=== PATIENT | female | born 1950 | race Caucasian/White ===

== ENCOUNTER 2016-11-21 18:15 | Inpatient (IN) | payer OTHER ==
[~2016-11-21] VITALS: Ht 165.1 cm; Wt 70.3 kg
[2016-11-21] MEDS ORDERED: IV NS 0.9% 1,000 ML BAG IV ONE (19:30)
[2016-11-21 19:44] LABS: BASOPHILS # (AUTO) 0.4 /CMM (0.0-0.2); BASOPHILS % (AUTO) 2.3 % (0.0-2.0); DIFF TOTAL % 100 %; EOSINOPHILS % (AUTO) 0.1 % (0.0-6.0); HEMATOCRIT 50 % (33-45); HEMOGLOBIN 15.9 g/dL (11.5-14.8); LYMPHOCYTES # (AUTO) 1.7 /CMM (0.8-4.8); MEAN CORPUSCULAR HEMOGLOBIN 28 PG (26.0-33.0); MEAN CORPUSCULAR HGB CONC 32 g/dl (31.0-36.0); MEAN CORPUSCULAR VOLUME 88 fL (82-100); MONOCYTES # (AUTO) 0.6 /CMM (0.1-1.30); MONOCYTES % (AUTO) 3.7 % (2.0-12.0); NEUTROPHILS # (AUTO) 14.4 /CMM (1.8-8.9); NEUTROPHILS % (AUTO) 83.9 % (43.0-81.0); PLATELET COUNT (AUTO) 292 /CMM (150-450); RED BLOOD CELL COUNT(AUTO) 5.72 MIL/uL (4.0-5.2); WHITE BLOOD COUNT (AUTO) 17.1 K/uL (4.3-11.0)
[2016-11-21] MEDS ORDERED: IV NS 0.9% 2,000 ML ONE ×2 (19:51→22:53)
[2016-11-21] MEDS ORDERED: IV SET PRIMARY 1 EA INFUS.SET MC ONE ×2 (19:51→22:53)
[2016-11-21] MEDS ORDERED: SECONDARY IV SET 1 EA INFUS.SET MC ONE (19:52)
[2016-11-21] MEDS ORDERED: IV NS 0.9% 250 ML IV ONE (19:52)
[2016-11-21 20:01] LABS: ALANINE AMINOTRANSFERASE 53 U/L (12-78); ALBUMIN 2.5 g/dL (3.4-5.0); ANION GAP 23 (5-14); ASPARTATE AMINOTRANSFERASE 229 U/L (15-37); BILIRUBIN,DIRECT 0.1 mg/dL (0.0-0.2); BILIRUBIN,TOTAL 0.4 mg/dL (0.2-1.0); CALCIUM, SERUM 8.1 mg/dL (8.5-10.1); CARBON DIOXIDE 21 mmol/L (21-32); CREATININE 4.1 mg/dL (0.6-1.3); GFR 11 mL/min (>60); GLUCOSE 155 mg/dL (74-106); INDIRECT BILIRUBIN 0.3 mg/dL (0.0-1.1); POTASSIUM 5.2 mmol/L (3.5-5.1); TOTAL PROTEIN, SERUM 7.7 g/dL (6.4-8.2)
[2016-11-21 20:02] LABS: TROPONIN I < 0.017 ng/mL (0.00-0.056)
[2016-11-21 20:03] LABS: INR 1.15 (0.87-1.13); PROTHROMBIN TIME 12.4 SECS (9.5-12.7)
[2016-11-21 20:06] LABS: LACTIC ACID 1.8 mmol/L (0.4-2.0)
[2016-11-21] MEDS ORDERED: PIPERACILLIN /TAZOBACTAM 3.375 G in IV D5W 50 ML IV ONE (20:30)
[2016-11-21] MEDS ORDERED: VANCOMYCIN 1 GM in IV D5W 250 ML IV ONE (20:30)
[2016-11-21 20:32] LABS: CHLORIDE 130 mmol/L (98-107); SODIUM SERUM 170 mmol/L (136-145); UREA NITROGEN, BLOOD 224 mg/dL (7-18)
[2016-11-21] MEDS ORDERED: IV SET PRIMARY PUMP SET 1 EA INFUS.SET MC ONE ×2 (20:49→23:52)
[2016-11-21] MEDS ORDERED: IV NS 0.9% 1,000 ML IV ONE (21:30)
[2016-11-21] MEDS ORDERED: ZOLPIDEM TARTRATE 5 MG TABLET PO PRN (23:00)
[2016-11-21] MEDS ORDERED: HYDROCODONE/APAP 5/325MG 1 EACH TABLET PO PRN (23:00)
[2016-11-21] MEDS ORDERED: ONDANSETRON HCL/PF 4 MG/2 ML VIAL IVP PRN (23:00)
[2016-11-21] MEDS ORDERED: MAG HYDROX/AL HYDROX/SIMETH 30 ML UDC PO PRN (23:00)
[2016-11-21] MEDS ORDERED: MORPHINE SULFATE INJ 2 MG/ML DISP.SYRIN IV PRN (23:00)
[2016-11-21] MEDS ORDERED: IV NS 0.9% 1,000 ML BAG IV PRN (23:00)
[2016-11-21] MEDS ORDERED: MAGNESIUM HYDROXIDE 30 ML UDC PO PRN (23:00)
[2016-11-21] MEDS ORDERED: ACETAMINOPHEN 325 MG TABLET PO PRN (23:00)
[2016-11-21] MEDS ORDERED: ENOXAPARIN SODIUM 40 MG/0.4 ML DISP.SYRIN SQ SCH (23:00)
[2016-11-21] MEDS ORDERED: NOREPINEPHRINE 4 MG/4 ML AMPUL IV ONE (23:52)
[2016-11-21] MEDS ORDERED: IV D5W 500 ML IV ONE (23:52)
[2016-11-22] VITALS (54 sets, daily range): BP systolic 85–110; BP diastolic 59–82
[2016-11-22] MEDS: NOREPINEPHRINE 8 MG in IV D5W 500 ML IV PRN ×2 (00:05→09:46)
[2016-11-22] MEDS ORDERED: IV SET PRIMARY PUMP SET 1 EA INFUS.SET MC ONE (02:05)
[2016-11-22] MEDS ORDERED: IV D5W 1,000 ML IV ONE (02:05)
[2016-11-22] MEDS ORDERED: ENOXAPARIN SODIUM 40 MG/0.4 ML DISP.SYRIN SQ ONE (02:06)
[2016-11-22] MEDS: IV D5W 1,000 ML IV PRN ×3 (02:11→22:21)
[2016-11-22] MEDS ORDERED: IV D5W 100 ML IV ONE (04:32)
[2016-11-22] MEDS ORDERED: PIPERACILLIN /TAZOBACTAM 3.375 G VIAL IV ONE (04:32)
[2016-11-22] MEDS ORDERED: SECONDARY IV SET 1 EA INFUS.SET MC ONE (04:41)
[2016-11-22] MEDS ORDERED: PIPERACILLIN /TAZOBACTAM 3.375 G in IV D5W 100 ML IV SCH (05:00)
[2016-11-22 05:04] LABS: BASOPHILS % (AUTO) 0.3 % (0.0-2.0); DIFF TOTAL % 100 %; EOSINOPHILS % (AUTO) 0.1 % (0.0-6.0); HEMATOCRIT 41 % (33-45); LYMPHOCYTES # (AUTO) 1.9 /CMM (0.8-4.8); LYMPHOCYTES % (AUTO) 11.9 % (20.0-44.0); MEAN CORPUSCULAR HEMOGLOBIN 28 PG (26.0-33.0); MEAN CORPUSCULAR HGB CONC 32 g/dl (31.0-36.0); MEAN CORPUSCULAR VOLUME 88 fL (82-100); MONOCYTES # (AUTO) 0.7 /CMM (0.1-1.30); MONOCYTES % (AUTO) 4.4 % (2.0-12.0); NEUTROPHILS # (AUTO) 13.1 /CMM (1.8-8.9); NEUTROPHILS % (AUTO) 83.3 % (43.0-81.0); PLATELET COUNT (AUTO) 284 /CMM (150-450); RED BLOOD CELL COUNT(AUTO) 4.68 MIL/uL (4.0-5.2); WHITE BLOOD COUNT (AUTO) 15.7 K/uL (4.3-11.0)
[2016-11-22 05:23] LABS: PREALBUMIN 17.4 MG/DL (18.0-35.7)
[2016-11-22 05:25] LABS: ALBUMIN 2.1 g/dL (3.4-5.0); BILIRUBIN,TOTAL 0.4 mg/dL (0.2-1.0); CALCIUM, SERUM 7.1 mg/dL (8.5-10.1); CREATININE 2.7 mg/dL (0.6-1.3); PHOSPHORUS 5.5 mg/dL (2.5-4.9); TOTAL PROTEIN, SERUM 6.4 g/dL (6.4-8.2)
[2016-11-22] MEDS ORDERED: AMLO10TA2 PO (07:56)
[2016-11-22] MEDS ORDERED: ARIP10TA15 PO (07:56)
[2016-11-22] MEDS ORDERED: CARB-93 PO (07:56)
[2016-11-22] MEDS ORDERED: QUET25TA PO (07:56)
[2016-11-22] MEDS ORDERED: TEMA15CA PO (07:56)
[2016-11-22] MEDS ORDERED: DOCU-25 PO (07:56)
[2016-11-22] MEDS ORDERED: SELE5TAB8 PO (07:56)
[2016-11-22] MEDS ORDERED: CLOP75TA2 PO (07:56)
[2016-11-22] MEDS ORDERED: LORA1TAB PO (07:56)
[2016-11-22] MEDS ORDERED: NOREPINEPHRINE 8 MG in IV D5W 500 ML IV PRN ×4 (09:00)
[2016-11-22] MEDS ORDERED: FEE PK DOSING 1 MIN EA MC ONE (09:02)
[2016-11-22] MEDS: PANTOPRAZOLE 40 MG VIAL IV SCH (09:17)
[2016-11-22] MEDS: Z GUARD REMEDY 2 OZ OINT TP PRN (09:18)
[2016-11-22] MEDS: PIPERACILLIN /TAZOBACTAM 2.25 G in IV D5W 50 ML IV SCH ×2 (09:18→18:41)
[2016-11-22] MEDS: HEPARIN SODIUM, PORCINE 5000 UNITS/1 ML VIAL SQ SCH ×2 (09:51→21:12)
[2016-11-22] MEDS ORDERED: DEXTROSE 50%-WATER 50 ML DISP.SYRIN IV PRN (10:00)
[2016-11-22 10:46] LABS: ADD UA MICROSCOPIC YES; KETONES,URINE NEGATIVE (NEGATIVE); LEUKOCYTE ESTERASE ,URINE 2+ (NEGATIVE)
[2016-11-22 10:53] LABS: ADD URINE CULTURE YES; MUCUS,URINE Few /LPF (None Seen); WBC,URINE 21-50 /HPF (0-3)
[2016-11-22] MEDS: BLOOD SUGAR DIAGNOSTIC 1 EACH STRIP IN SCH ×2 (12:09→18:12)
[2016-11-22 14:45] LABS: CALCIUM, SERUM 7.2 mg/dL (8.5-10.1); CREATININE 1.9 mg/dL (0.6-1.3); POTASSIUM 3.5 mmol/L (3.5-5.1)
[2016-11-22] MEDS ORDERED: INSULIN DETEMIR 100 UNIT/ML CARTRIDGE SQ ONE (15:30)
[2016-11-22] MEDS: INSULIN REGULAR, HUMAN 100 UNIT/ML 3 ML VIAL SQ PRN (17:58)
[2016-11-22] MEDS ORDERED: ENOXAPARIN SODIUM 30 MG/0.3 ML DISP.SYRIN SQ SCH (21:00)
[2016-11-23] VITALS (76 sets, daily range): BP systolic 80–118; BP diastolic 51–80
[2016-11-23] MEDS: BLOOD SUGAR DIAGNOSTIC 1 EACH STRIP IN SCH ×4 (00:04→17:44)
[2016-11-23] MEDS: PIPERACILLIN /TAZOBACTAM 2.25 G in IV D5W 50 ML IV SCH ×3 (01:02→17:45)
[2016-11-23] MEDS: NOREPINEPHRINE 8 MG in IV D5W 500 ML IV PRN ×3 (04:58→14:49)
[2016-11-23 05:19] LABS: BASOPHILS % (AUTO) 0.2 % (0.0-2.0); DIFF TOTAL % 100 %; EOSINOPHILS # (AUTO) 0.1 /CMM (0.0-0.7); EOSINOPHILS % (AUTO) 0.8 % (0.0-6.0); HEMATOCRIT 42 % (33-45); HEMOGLOBIN 13.2 g/dL (11.5-14.8); LYMPHOCYTES # (AUTO) 1.5 /CMM (0.8-4.8); LYMPHOCYTES % (AUTO) 9.4 % (20.0-44.0); MEAN CORPUSCULAR HEMOGLOBIN 28 PG (26.0-33.0); MEAN CORPUSCULAR HGB CONC 32 g/dl (31.0-36.0); MEAN CORPUSCULAR VOLUME 88 fL (82-100); MONOCYTES # (AUTO) 0.5 /CMM (0.1-1.30); MONOCYTES % (AUTO) 3.5 % (2.0-12.0); NEUTROPHILS # (AUTO) 13.4 /CMM (1.8-8.9); NEUTROPHILS % (AUTO) 86.1 % (43.0-81.0); PLATELET COUNT (AUTO) 286 /CMM (150-450); RED BLOOD CELL COUNT(AUTO) 4.72 MIL/uL (4.0-5.2); WHITE BLOOD COUNT (AUTO) 15.6 K/uL (4.3-11.0)
[2016-11-23 05:35] LABS: CALCIUM, SERUM 7.8 mg/dL (8.5-10.1); CREATININE 1.5 mg/dL (0.6-1.3); PHOSPHORUS 3.3 mg/dL (2.5-4.9); POTASSIUM 3.1 mmol/L (3.5-5.1)
[2016-11-23] MEDS: INSULIN REGULAR, HUMAN 100 UNIT/ML 3 ML VIAL SQ PRN ×2 (06:08→11:25)
[2016-11-23] MEDS: IV D5W 1,000 ML IV PRN (08:18)
[2016-11-23] MEDS: PANTOPRAZOLE 40 MG VIAL IV SCH (08:18)
[2016-11-23] MEDS: NYSTATIN TOP POWDER 15 GM BOTTLE TP SCH (08:21)
[2016-11-23] MEDS: CADEXOMER IODINE 40 GM TUBE TP SCH (08:21)
[2016-11-23] MEDS: HEPARIN SODIUM, PORCINE 5000 UNITS/1 ML VIAL SQ SCH ×2 (08:22→21:05)
[2016-11-23] MEDS ORDERED: Potassium Chloride 20 MEQ in IV D5W 1,000 ML IV PRN (09:33)
[2016-11-23] MEDS ORDERED: VANCOMYCIN 0.75 GM in IV D5W 250 ML IV SCH (10:00)
[2016-11-23] MEDS ORDERED: IV D5W 500 ML IV STA (10:05)
[2016-11-23] MEDS: Potassium Chloride 20 MEQ in IV D5W 1,000 ML IV PRN ×2 (10:19→18:02)
[2016-11-23] MEDS ORDERED: SECONDARY IV SET 1 EA INFUS.SET MC ONE (11:13)
[2016-11-23] MEDS: VANCOMYCIN 1 GM in IV D5W 250 ML IV SCH (11:14)
[2016-11-24] VITALS (57 sets, daily range): BP systolic 77–110; BP diastolic 45–72
[2016-11-24] MEDS: INSULIN REGULAR, HUMAN 100 UNIT/ML 3 ML VIAL SQ PRN ×3 (00:10→11:49)
[2016-11-24] MEDS: PIPERACILLIN /TAZOBACTAM 2.25 G in IV D5W 50 ML IV SCH ×2 (00:11→08:52)
[2016-11-24] MEDS ORDERED: IV PREMIX D5W + KCL 1,000 ML IV ONE (03:58)
[2016-11-24 04:52] LABS: BASOPHILS # (AUTO) 0.2 /CMM (0.0-0.2); BASOPHILS % (AUTO) 1.5 % (0.0-2.0); DIFF TOTAL % 100 %; EOSINOPHILS # (AUTO) 0.2 /CMM (0.0-0.7); EOSINOPHILS % (AUTO) 1.5 % (0.0-6.0); HEMATOCRIT 37 % (33-45); HEMOGLOBIN 11.8 g/dL (11.5-14.8); LYMPHOCYTES # (AUTO) 1.5 /CMM (0.8-4.8); LYMPHOCYTES % (AUTO) 11.3 % (20.0-44.0); MEAN CORPUSCULAR HEMOGLOBIN 28 PG (26.0-33.0); MEAN CORPUSCULAR HGB CONC 32 g/dl (31.0-36.0); MEAN CORPUSCULAR VOLUME 87 fL (82-100); MONOCYTES # (AUTO) 0.5 /CMM (0.1-1.30); MONOCYTES % (AUTO) 3.6 % (2.0-12.0); NEUTROPHILS # (AUTO) 11.2 /CMM (1.8-8.9); NEUTROPHILS % (AUTO) 82.1 % (43.0-81.0); PLATELET COUNT (AUTO) 241 /CMM (150-450); RED BLOOD CELL COUNT(AUTO) 4.22 MIL/uL (4.0-5.2); WHITE BLOOD COUNT (AUTO) 13.6 K/uL (4.3-11.0)
[2016-11-24 05:02] LABS: CALCIUM, SERUM 7.6 mg/dL (8.5-10.1); CREATININE 1.1 mg/dL (0.6-1.3); POTASSIUM 3.9 mmol/L (3.5-5.1)
[2016-11-24] MEDS: BLOOD SUGAR DIAGNOSTIC 1 EACH STRIP IN SCH ×4 (06:00→17:35)
[2016-11-24] MEDS: PANTOPRAZOLE 40 MG VIAL IV SCH (08:52)
[2016-11-24] MEDS: HEPARIN SODIUM, PORCINE 5000 UNITS/1 ML VIAL SQ SCH ×2 (08:53→21:00)
[2016-11-24] MEDS: NYSTATIN TOP POWDER 15 GM BOTTLE TP SCH (08:54)
[2016-11-24] MEDS: CADEXOMER IODINE 40 GM TUBE TP SCH (08:54)
[2016-11-24 10:10] LABS: URINE SODIUM, RANDOM 9 mmol/l (40-220)
[2016-11-24] MEDS: VANCOMYCIN 1 GM in IV D5W 250 ML IV SCH (10:16)
[2016-11-24] MEDS: PIPERACILLIN /TAZOBACTAM 3.375 G in IV D5W 50 ML IV SCH ×2 (14:55→20:59)
[2016-11-24] MEDS: Potassium Chloride 20 MEQ in IV D5W 1,000 ML IV PRN (14:57)
[2016-11-24] MEDS: NOREPINEPHRINE 8 MG in IV D5W 500 ML IV PRN (18:31)
[2016-11-25] VITALS (45 sets, daily range): BP systolic 86–122; BP diastolic 49–80
[2016-11-25] MEDS: Potassium Chloride 20 MEQ in IV D5W 1,000 ML IV PRN ×4 (01:42→20:29)
[2016-11-25] MEDS: INSULIN REGULAR, HUMAN 100 UNIT/ML 3 ML VIAL SQ PRN ×2 (01:43→04:58)
[2016-11-25] MEDS: PIPERACILLIN /TAZOBACTAM 3.375 G in IV D5W 50 ML IV SCH ×4 (03:06→20:27)
[2016-11-25 04:39] LABS: BASOPHILS % (AUTO) 0.3 % (0.0-2.0); DIFF TOTAL % 100 %; EOSINOPHILS # (AUTO) 0.3 /CMM (0.0-0.7); EOSINOPHILS % (AUTO) 2.6 % (0.0-6.0); HEMATOCRIT 36 % (33-45); HEMOGLOBIN 11.6 g/dL (11.5-14.8); LYMPHOCYTES # (AUTO) 1.3 /CMM (0.8-4.8); LYMPHOCYTES % (AUTO) 10.5 % (20.0-44.0); MEAN CORPUSCULAR HEMOGLOBIN 28 PG (26.0-33.0); MEAN CORPUSCULAR HGB CONC 32 g/dl (31.0-36.0); MEAN CORPUSCULAR VOLUME 86 fL (82-100); MONOCYTES # (AUTO) 0.4 /CMM (0.1-1.30); MONOCYTES % (AUTO) 3.1 % (2.0-12.0); NEUTROPHILS # (AUTO) 10.1 /CMM (1.8-8.9); NEUTROPHILS % (AUTO) 83.5 % (43.0-81.0); PLATELET COUNT (AUTO) 239 /CMM (150-450); WHITE BLOOD COUNT (AUTO) 12.1 K/uL (4.3-11.0)
[2016-11-25 04:49] LABS: CALCIUM, SERUM 7.7 mg/dL (8.5-10.1); CREATININE 0.9 mg/dL (0.6-1.3)
[2016-11-25] MEDS: VANCOMYCIN 1 GM in IV D5W 250 ML IV SCH ×2 (04:57→20:30)
[2016-11-25] MEDS: BLOOD SUGAR DIAGNOSTIC 1 EACH STRIP IN SCH ×4 (04:58→17:32)
[2016-11-25] MEDS: PANTOPRAZOLE 40 MG VIAL IV SCH (08:05)
[2016-11-25] MEDS: CADEXOMER IODINE 40 GM TUBE TP SCH (08:06)
[2016-11-25] MEDS: NYSTATIN TOP POWDER 15 GM BOTTLE TP SCH (08:06)
[2016-11-25] MEDS: HEPARIN SODIUM, PORCINE 5000 UNITS/1 ML VIAL SQ SCH ×2 (08:07→20:27)
[2016-11-26] VITALS (50 sets, daily range): BP systolic 76–143; BP diastolic 44–88
[2016-11-26] MEDS: INSULIN REGULAR, HUMAN 100 UNIT/ML 3 ML VIAL SQ PRN ×2 (03:47→06:38)
[2016-11-26] MEDS: PIPERACILLIN /TAZOBACTAM 3.375 G in IV D5W 50 ML IV SCH ×4 (03:47→21:46)
[2016-11-26 05:56] LABS: CALCIUM, SERUM 7.9 mg/dL (8.5-10.1); CREATININE 0.7 mg/dL (0.6-1.3)
[2016-11-26 05:59] LABS: BASOPHILS % (AUTO) 0.1 % (0.0-2.0); DIFF TOTAL % 100 %; EOSINOPHILS # (AUTO) 0.4 /CMM (0.0-0.7); EOSINOPHILS % (AUTO) 3.7 % (0.0-6.0); HEMATOCRIT 34 % (33-45); HEMOGLOBIN 11.3 g/dL (11.5-14.8); LYMPHOCYTES # (AUTO) 1.3 /CMM (0.8-4.8); LYMPHOCYTES % (AUTO) 10.7 % (20.0-44.0); MEAN CORPUSCULAR HEMOGLOBIN 28 PG (26.0-33.0); MEAN CORPUSCULAR HGB CONC 33 g/dl (31.0-36.0); MEAN CORPUSCULAR VOLUME 85 fL (82-100); MONOCYTES # (AUTO) 0.4 /CMM (0.1-1.30); MONOCYTES % (AUTO) 3.2 % (2.0-12.0); NEUTROPHILS % (AUTO) 82.3 % (43.0-81.0); PLATELET COUNT (AUTO) 201 /CMM (150-450); RED BLOOD CELL COUNT(AUTO) 3.97 MIL/uL (4.0-5.2); WHITE BLOOD COUNT (AUTO) 12.1 K/uL (4.3-11.0)
[2016-11-26] MEDS: BLOOD SUGAR DIAGNOSTIC 1 EACH STRIP IN SCH ×4 (06:00→17:05)
[2016-11-26] MEDS: Potassium Chloride 20 MEQ in IV D5W 1,000 ML IV PRN ×2 (06:44→14:59)
[2016-11-26] MEDS: PANTOPRAZOLE 40 MG VIAL IV SCH (08:37)
[2016-11-26] MEDS: HEPARIN SODIUM, PORCINE 5000 UNITS/1 ML VIAL SQ SCH ×2 (08:40→21:47)
[2016-11-26] MEDS: Z GUARD REMEDY 2 OZ OINT TP PRN (08:40)
[2016-11-26] MEDS: CADEXOMER IODINE 40 GM TUBE TP SCH (08:40)
[2016-11-26] MEDS: NYSTATIN TOP POWDER 15 GM BOTTLE TP SCH (08:42)
[2016-11-26] MEDS: VANCOMYCIN 1 GM in IV D5W 250 ML IV SCH (16:27)
[2016-11-26] MEDS: NOREPINEPHRINE 8 MG in IV D5W 500 ML IV PRN (17:47)
[2016-11-26] MEDS ORDERED: IV PREMIX D5W + KCL 1,000 ML IV ONE (21:56)
[2016-11-27] VITALS (73 sets, daily range): BP systolic 81–116; BP diastolic 43–79
[2016-11-27] MEDS: BLOOD SUGAR DIAGNOSTIC 1 EACH STRIP IN SCH ×4 (00:53→17:41)
[2016-11-27] MEDS: PIPERACILLIN /TAZOBACTAM 3.375 G in IV D5W 50 ML IV SCH ×3 (03:09→15:47)
[2016-11-27 05:14] LABS: CALCIUM, SERUM 7.7 mg/dL (8.5-10.1); CREATININE 0.7 mg/dL (0.6-1.3); POTASSIUM 4.5 mmol/L (3.5-5.1)
[2016-11-27] MEDS: INSULIN REGULAR, HUMAN 100 UNIT/ML 3 ML VIAL SQ PRN (07:10)
[2016-11-27] MEDS: HEPARIN SODIUM, PORCINE 5000 UNITS/1 ML VIAL SQ SCH ×2 (08:22→21:04)
[2016-11-27] MEDS: PANTOPRAZOLE 40 MG VIAL IV SCH (08:22)
[2016-11-27] MEDS: CADEXOMER IODINE 40 GM TUBE TP SCH (08:24)
[2016-11-27] MEDS: NYSTATIN TOP POWDER 15 GM BOTTLE TP SCH (08:25)
[2016-11-27] MEDS: VANCOMYCIN 1 GM in IV D5W 250 ML IV SCH (10:29)
[2016-11-27] MEDS: Potassium Chloride 20 MEQ in IV D5W 1,000 ML IV PRN ×2 (10:30→20:57)
[2016-11-27] MEDS: NOREPINEPHRINE 8 MG in IV D5W 500 ML IV PRN (17:40)
[2016-11-27] MEDS ORDERED: LEVOFLOXACIN 500 MG /D5W 100ML 500 MG in PREMIX 1 EA IV SCH (19:30)
[2016-11-27] MEDS ORDERED: LEVOFLOXACIN 500 MG /D5W 100ML 500 MG in PREMIX 1 EA IV ONE (20:00)
[2016-11-27] MEDS ORDERED: SECONDARY IV SET 1 EA INFUS.SET MC ONE (20:35)
[2016-11-28] VITALS (79 sets, daily range): BP systolic 80–124; BP diastolic 48–79
[2016-11-28] MEDS: BLOOD SUGAR DIAGNOSTIC 1 EACH STRIP IN SCH ×2 (00:07→05:34)
[2016-11-28] MEDS: VANCOMYCIN 1 GM in IV D5W 250 ML IV SCH (03:28)
[2016-11-28] MEDS ORDERED: NOREPINEPHRINE 4 MG/4 ML AMPUL IV ONE (03:40)
[2016-11-28] MEDS ORDERED: IV SET PRIMARY PUMP SET 1 EA INFUS.SET MC ONE (03:40)
[2016-11-28 05:02] LABS: CALCIUM, SERUM 7.9 mg/dL (8.5-10.1); CREATININE 0.6 mg/dL (0.6-1.3); POTASSIUM 4.4 mmol/L (3.5-5.1)
[2016-11-28] MEDS: PANTOPRAZOLE 40 MG VIAL IV SCH (08:48)
[2016-11-28] MEDS: HEPARIN SODIUM, PORCINE 5000 UNITS/1 ML VIAL SQ SCH ×2 (08:48→21:24)
[2016-11-28] MEDS: Potassium Chloride 20 MEQ in IV D5W 1,000 ML IV PRN (08:51)
[2016-11-28] MEDS: CADEXOMER IODINE 40 GM TUBE TP SCH (08:56)
[2016-11-28] MEDS: NYSTATIN TOP POWDER 15 GM BOTTLE TP SCH (08:57)
[2016-11-28] MEDS: BOOST GLUCOSE CONTROL VANILLA 237 ML BOX PO SCH ×3 (09:02→16:44)
[2016-11-28] MEDS ORDERED: Potassium Chloride 20 MEQ in IV NS 0.9% 1,000 ML IV PRN (09:30)
[2016-11-28] MEDS ORDERED: Potassium Chloride 20 MEQ in IV D5/0.45 NACL 1,000 ML IV PRN (09:30)
[2016-11-28] MEDS ORDERED: CARBIDOPA/LEVODOPA 25/100 MG 1 UDTAB PO SCH (09:30)
[2016-11-28] MEDS: ARIPIPRAZOLE 5 MG TABLET PO SCH (10:11)
[2016-11-28] MEDS: SELEGILINE HCL 5 MG CAPSULE PO SCH (10:35)
[2016-11-28] MEDS: Potassium Chloride 20 MEQ in IV D5/0.45 NACL 1,000 ML IV PRN (15:12)
[2016-11-28] MEDS: CARBIDOPA/LEVODOPA 25/100 MG 1 UDTAB PO SCH (16:43)
[2016-11-28] MEDS: LACTOBACILLUS RHAMNOSUS GG 1 EACH CAP.SPRINK PO SCH (16:43)
[2016-11-28] MEDS: NOREPINEPHRINE 8 MG in IV D5W 500 ML IV PRN (17:06)
[2016-11-28] MEDS: LEVOFLOXACIN 250 MG /D5W 50 ML 250 MG in PREMIX 1 EA IV SCH (19:52)
[2016-11-29] VITALS (42 sets, daily range): BP systolic 86–138; BP diastolic 45–79
[2016-11-29] MEDS: Potassium Chloride 20 MEQ in IV D5/0.45 NACL 1,000 ML IV PRN ×2 (03:02→12:43)
[2016-11-29 05:05] LABS: BASOPHILS % (AUTO) 0.3 % (0.0-2.0); DIFF TOTAL % 100 %; EOSINOPHILS # (AUTO) 0.2 /CMM (0.0-0.7); EOSINOPHILS % (AUTO) 1.8 % (0.0-6.0); HEMATOCRIT 32 % (33-45); HEMOGLOBIN 10.4 g/dL (11.5-14.8); LYMPHOCYTES # (AUTO) 1.4 /CMM (0.8-4.8); LYMPHOCYTES % (AUTO) 13.1 % (20.0-44.0); MEAN CORPUSCULAR HEMOGLOBIN 28 PG (26.0-33.0); MEAN CORPUSCULAR HGB CONC 32 g/dl (31.0-36.0); MEAN CORPUSCULAR VOLUME 86 fL (82-100); MONOCYTES # (AUTO) 0.5 /CMM (0.1-1.30); NEUTROPHILS # (AUTO) 8.6 /CMM (1.8-8.9); NEUTROPHILS % (AUTO) 79.8 % (43.0-81.0); PLATELET COUNT (AUTO) 258 /CMM (150-450); RED BLOOD CELL COUNT(AUTO) 3.75 MIL/uL (4.0-5.2); WHITE BLOOD COUNT (AUTO) 10.8 K/uL (4.3-11.0)
[2016-11-29 05:24] LABS: CALCIUM, SERUM 7.9 mg/dL (8.5-10.1); CREATININE 0.6 mg/dL (0.6-1.3); POTASSIUM 4.3 mmol/L (3.5-5.1)
[2016-11-29] MEDS: BOOST GLUCOSE CONTROL VANILLA 237 ML BOX PO SCH ×3 (08:27→16:45)
[2016-11-29] MEDS: LACTOBACILLUS RHAMNOSUS GG 1 EACH CAP.SPRINK PO SCH ×2 (08:27→16:40)
[2016-11-29] MEDS: PANTOPRAZOLE 40 MG VIAL IV SCH (08:27)
[2016-11-29] MEDS: ARIPIPRAZOLE 5 MG TABLET PO SCH (08:27)
[2016-11-29] MEDS: CARBIDOPA/LEVODOPA 25/100 MG 1 UDTAB PO SCH ×3 (08:28→16:41)
[2016-11-29] MEDS: NYSTATIN TOP POWDER 15 GM BOTTLE TP SCH (08:29)
[2016-11-29] MEDS: CADEXOMER IODINE 40 GM TUBE TP SCH (08:29)
[2016-11-29] MEDS: HEPARIN SODIUM, PORCINE 5000 UNITS/1 ML VIAL SQ SCH (08:31)
[2016-11-29] MEDS: SELEGILINE HCL 5 MG CAPSULE PO SCH (09:58)
[2016-11-29] MEDS: MIDODRINE HCL (5MG) 5 MG TABLET PO SCH ×2 (11:14→16:41)
[2016-11-29] MEDS: NOREPINEPHRINE 8 MG in IV D5W 500 ML IV PRN (16:41)
[2016-11-29] MEDS: LEVOFLOXACIN 250 MG /D5W 50 ML 250 MG in PREMIX 1 EA IV SCH (21:22)
[2016-11-30] VITALS (24 sets, daily range): BP systolic 89–115; BP diastolic 54–75
[2016-11-30] MEDS: Potassium Chloride 20 MEQ in IV D5/0.45 NACL 1,000 ML IV PRN ×3 (00:33→22:06)
[2016-11-30 04:56] LABS: BASOPHILS % (AUTO) 0.2 % (0.0-2.0); DIFF TOTAL % 100 %; EOSINOPHILS # (AUTO) 0.1 /CMM (0.0-0.7); EOSINOPHILS % (AUTO) 1.5 % (0.0-6.0); HEMATOCRIT 28 % (33-45); HEMOGLOBIN 9.5 g/dL (11.5-14.8); LYMPHOCYTES # (AUTO) 1.2 /CMM (0.8-4.8); LYMPHOCYTES % (AUTO) 13.5 % (20.0-44.0); MEAN CORPUSCULAR HEMOGLOBIN 28 PG (26.0-33.0); MEAN CORPUSCULAR HGB CONC 33 g/dl (31.0-36.0); MEAN CORPUSCULAR VOLUME 85 fL (82-100); MONOCYTES # (AUTO) 0.4 /CMM (0.1-1.30); MONOCYTES % (AUTO) 5.1 % (2.0-12.0); NEUTROPHILS % (AUTO) 79.7 % (43.0-81.0); PLATELET COUNT (AUTO) 239 /CMM (150-450); RED BLOOD CELL COUNT(AUTO) 3.36 MIL/uL (4.0-5.2); WHITE BLOOD COUNT (AUTO) 8.8 K/uL (4.3-11.0)
[2016-11-30] MEDS: CADEXOMER IODINE 40 GM TUBE TP SCH (05:00)
[2016-11-30 05:09] LABS: CALCIUM, SERUM 7.8 mg/dL (8.5-10.1); CREATININE 0.6 mg/dL (0.6-1.3); POTASSIUM 4.4 mmol/L (3.5-5.1)
[2016-11-30] MEDS: BOOST GLUCOSE CONTROL VANILLA 237 ML BOX PO SCH ×3 (08:12→17:18)
[2016-11-30] MEDS: PANTOPRAZOLE 40 MG VIAL IV SCH (08:12)
[2016-11-30] MEDS: ARIPIPRAZOLE 5 MG TABLET PO SCH (08:13)
[2016-11-30] MEDS: SELEGILINE HCL 5 MG CAPSULE PO SCH (08:13)
[2016-11-30] MEDS: LACTOBACILLUS RHAMNOSUS GG 1 EACH CAP.SPRINK PO SCH ×2 (08:13→17:18)
[2016-11-30] MEDS: CARBIDOPA/LEVODOPA 25/100 MG 1 UDTAB PO SCH ×5 (08:13→20:47)
[2016-11-30] MEDS: MIDODRINE HCL (5MG) 5 MG TABLET PO SCH ×4 (08:14→17:18)
[2016-11-30] MEDS: NYSTATIN TOP POWDER 15 GM BOTTLE TP SCH (09:55)
[2016-11-30] MEDS: LEVOFLOXACIN 250 MG /D5W 50 ML 250 MG in PREMIX 1 EA IV SCH (20:47)
[2016-12-01] VITALS (30 sets, daily range): BP systolic 81–115; BP diastolic 49–74
[2016-12-01 05:11] LABS: BASOPHILS % (AUTO) 0.3 % (0.0-2.0); DIFF TOTAL % 100 %; EOSINOPHILS # (AUTO) 0.1 /CMM (0.0-0.7); EOSINOPHILS % (AUTO) 1.5 % (0.0-6.0); HEMATOCRIT 28 % (33-45); HEMOGLOBIN 9.3 g/dL (11.5-14.8); LYMPHOCYTES # (AUTO) 1.1 /CMM (0.8-4.8); LYMPHOCYTES % (AUTO) 13.5 % (20.0-44.0); MEAN CORPUSCULAR HEMOGLOBIN 28 PG (26.0-33.0); MEAN CORPUSCULAR HGB CONC 33 g/dl (31.0-36.0); MEAN CORPUSCULAR VOLUME 85 fL (82-100); MONOCYTES # (AUTO) 0.3 /CMM (0.1-1.30); MONOCYTES % (AUTO) 4.1 % (2.0-12.0); NEUTROPHILS # (AUTO) 6.8 /CMM (1.8-8.9); NEUTROPHILS % (AUTO) 80.6 % (43.0-81.0); PLATELET COUNT (AUTO) 222 /CMM (150-450); RED BLOOD CELL COUNT(AUTO) 3.29 MIL/uL (4.0-5.2); WHITE BLOOD COUNT (AUTO) 8.4 K/uL (4.3-11.0)
[2016-12-01 05:16] LABS: CALCIUM, SERUM 7.6 mg/dL (8.5-10.1); CREATININE 0.6 mg/dL (0.6-1.3); POTASSIUM 5.4 mmol/L (3.5-5.1)
[2016-12-01] MEDS: BOOST GLUCOSE CONTROL VANILLA 237 ML BOX PO SCH ×3 (08:21→16:56)
[2016-12-01] MEDS: SELEGILINE HCL 5 MG CAPSULE PO SCH (08:21)
[2016-12-01] MEDS: LACTOBACILLUS RHAMNOSUS GG 1 EACH CAP.SPRINK PO SCH ×2 (08:21→16:55)
[2016-12-01] MEDS: MIDODRINE HCL (5MG) 5 MG TABLET PO SCH ×3 (08:22→16:55)
[2016-12-01] MEDS: ARIPIPRAZOLE 5 MG TABLET PO SCH (08:22)
[2016-12-01] MEDS: PANTOPRAZOLE 40 MG VIAL IV SCH (08:22)
[2016-12-01] MEDS: CADEXOMER IODINE 40 GM TUBE TP SCH (08:23)
[2016-12-01] MEDS: NYSTATIN TOP POWDER 15 GM BOTTLE TP SCH (08:25)
[2016-12-01] MEDS: CARBIDOPA/LEVODOPA 25/100 MG 1 UDTAB PO SCH ×4 (08:28→20:32)
[2016-12-01] MEDS ORDERED: Midodrine Hcl PO (12:35)
[2016-12-01] MEDS ORDERED: LACT1CAP72 PO (12:35)
[2016-12-02] VITALS (9 sets, daily range): BP systolic 91–137; BP diastolic 55–73
[2016-12-02 04:50] LABS: CALCIUM, SERUM 8.2 mg/dL (8.5-10.1); CREATININE 0.6 mg/dL (0.6-1.3)
[2016-12-02] MEDS: PANTOPRAZOLE 40 MG VIAL IV SCH (09:19)
[2016-12-02] MEDS: ARIPIPRAZOLE 5 MG TABLET PO SCH (09:19)
[2016-12-02] MEDS: LACTOBACILLUS RHAMNOSUS GG 1 EACH CAP.SPRINK PO SCH ×2 (09:19→17:38)
[2016-12-02] MEDS: BOOST GLUCOSE CONTROL VANILLA 237 ML BOX PO SCH ×3 (09:19→17:38)
[2016-12-02] MEDS: CARBIDOPA/LEVODOPA 25/100 MG 1 UDTAB PO SCH ×4 (09:19→21:33)
[2016-12-02] MEDS: SELEGILINE HCL 5 MG CAPSULE PO SCH (09:20)
[2016-12-02] MEDS: MIDODRINE HCL (5MG) 5 MG TABLET PO SCH ×3 (09:20→17:00)
[2016-12-02] MEDS: CADEXOMER IODINE 40 GM TUBE TP SCH (09:21)
[2016-12-02] MEDS: NYSTATIN TOP POWDER 15 GM BOTTLE TP SCH (09:21)
[2016-12-03] VITALS: BP 113/70
[2016-12-03 06:45] LABS: CALCIUM, SERUM 8.1 mg/dL (8.5-10.1); CREATININE 0.6 mg/dL (0.6-1.3); POTASSIUM 3.6 mmol/L (3.5-5.1)
[2016-12-03 08:00] VITALS: BP 98/66
[2016-12-03] MEDS: BOOST GLUCOSE CONTROL VANILLA 237 ML BOX PO SCH ×3 (08:56→18:00)
[2016-12-03] MEDS: PANTOPRAZOLE 40 MG VIAL IV SCH (08:57)
[2016-12-03] MEDS: LACTOBACILLUS RHAMNOSUS GG 1 EACH CAP.SPRINK PO SCH ×2 (08:57→17:59)
[2016-12-03] MEDS: ARIPIPRAZOLE 5 MG TABLET PO SCH (08:57)
[2016-12-03] MEDS: MIDODRINE HCL (5MG) 5 MG TABLET PO SCH ×3 (08:57→18:00)
[2016-12-03] MEDS: SELEGILINE HCL 5 MG CAPSULE PO SCH (09:00)
[2016-12-03] MEDS: CADEXOMER IODINE 40 GM TUBE TP SCH (09:02)
[2016-12-03] MEDS: CARBIDOPA/LEVODOPA 25/100 MG 1 UDTAB PO SCH ×4 (09:02→21:26)
[2016-12-03] MEDS: NYSTATIN TOP POWDER 15 GM BOTTLE TP SCH (09:03)
[2016-12-03 16:00] VITALS: BP 122/77
[2016-12-03 20:27] VITALS: BP 102/63
== END 2016-12-03 21:45 | DRG 871 ==
LOC: ER 18:20 → TELE-TD 22:17 → ICU 23:24 → MEDSG2 12-02 04:00
PROVIDERS: ADMIT Family Medicine; ATTEND Internal Medicine
PROC: 02HV33Z Insertion of Infusion Device into Superior Vena Cava, Percutaneous Approach (ICD-10-PCS; principal; 2016-11-22)
PROC: B548ZZA Ultrasonography of Superior Vena Cava, Guidance (ICD-10-PCS; 2016-11-22)
DX: A41.9 Sepsis, unspecified organism (principal); R65.21 Severe sepsis with septic shock; N17.0 Acute kidney failure with tubular necrosis; E43 Unspecified severe protein-calorie malnutrition; G92 Toxic encephalopathy; N39.0 Urinary tract infection, site not specified; E87.0 Hyperosmolality and hypernatremia; I96 Gangrene, not elsewhere classified; E87.5 Hyperkalemia; N18.9 Chronic kidney disease, unspecified; Z66 Do not resuscitate; L89.150 Pressure ulcer of sacral region, unstageable; E86.0 Dehydration; G20 Parkinson's disease; F02.80 Dementia in other diseases classified elsewhere, unspecified severity, without behavioral disturbance, psychotic disturbance, mood disturbance, and anxiety; B96.1 Klebsiella pneumoniae [K. pneumoniae] as the cause of diseases classified elsewhere; R13.10 Dysphagia, unspecified; Z68.25 Body mass index [BMI] 25.0-25.9, adult; L98.9 Disorder of the skin and subcutaneous tissue, unspecified; L53.9 Erythematous condition, unspecified; L89.890 Pressure ulcer of other site, unstageable; L89.100 Pressure ulcer of unspecified part of back, unstageable; S81.802A Unspecified open wound, left lower leg, initial encounter; S81.801A Unspecified open wound, right lower leg, initial encounter; X58.XXXA Exposure to other specified factors, initial encounter; Y93.9 Activity, unspecified; Y92.89 Other specified places as the place of occurrence of the external cause; Y99.9 Unspecified external cause status; D63.8 Anemia in other chronic diseases classified elsewhere
CPT/HCPCS: 36415; 71010-TC; 80048-TC; 80053-TC; 80076-TC; 80202-TC; 81000-TC; 82533; 82962-TC; 83605-TC; 83735-TC; 83935-TC; 84100-TC; 84134-TC; 84300-TC; 84484-TC; 85025-TC; 85730-TC; 87040-TC; 87081-TC; 87086-TC; 87186-TC; 92526; 92611-TC; A4216; A4606; A6253; A6403; C1751; C9113; J1644; J1650; J1815; J1956; J2270; J2543; J3370; J3480; J3490; J7030; J7050; J7060; J7070; Z7610